=== PATIENT | male | born 1990 | race Caucasian/White ===

== ENCOUNTER 2019-10-04 12:19 | Emergency (ER) | payer MEDICAID ==
[~2019-10-04] VITALS: Ht 180.3 cm; Wt 96.2 kg
[2019-10-04 13:14] VITALS: Ht 180.3 cm; Wt 96.2 kg
[2019-10-04 14:48] VITALS: BP 114/71
== END 2019-10-04 14:15 | disposition home or self-care (01) ==
LOC: ED 12:19
DX: S76.912A Strain of unspecified muscles, fascia and tendons at thigh level, left thigh, initial encounter (principal); Z91.030 Bee allergy status; X50.1XXA Overexertion from prolonged static or awkward postures, initial encounter; Y93.66 Activity, soccer; Y92.89 Other specified places as the place of occurrence of the external cause; Y99.8 Other external cause status
CPT/HCPCS: J1885